=== PATIENT | female | born 1990 | race Two or more races ===

== ENCOUNTER 2016-10-17 17:00 | Emergency (ER) | payer OTHER ==
[~2016-10-17] VITALS: Ht 165.1 cm; Wt 95.5 kg
[2016-10-17] MEDS ORDERED: IBUP-1547 PO (17:14)
[2016-10-17 20:00] LABS: ADD UA MICROSCOPIC NO; APPEARANCE,URINE CLEAR (CLEAR); GLUCOSE, URINE (UA) NEGATIVE (NEGATIVE); KETONES,URINE NEGATIVE (NEGATIVE); LEUKOCYTE ESTERASE ,URINE NEGATIVE (NEGATIVE); OCCULT BLOOD,URINE NEGATIVE (NEGATIVE); PROTEIN,URINE TRACE (NEGATIVE)
[2016-10-17] MEDS ORDERED: KETOROLAC TROMETHAMINE 30 MG/ML VIAL IM ONE (20:00)
[2016-10-17] MEDS ORDERED: ACETAMINOPHEN/CODEINE 300-30 MG TABLET PO ONE (20:30)
[2016-10-17] MEDS ORDERED: METHOCARBAMOL 500 MG TABLET PO ONE (20:30)
[2016-10-17 21:05] VITALS: BP 138/81
== END 2016-10-17 21:06 | disposition home or self-care (01) ==
LOC: EMS 17:03
DX: S39.012A Strain of muscle, fascia and tendon of lower back, initial encounter (principal); X58.XXXA Exposure to other specified factors, initial encounter; Y93.89 Activity, other specified; Y92.89 Other specified places as the place of occurrence of the external cause; Y99.8 Other external cause status
CPT/HCPCS: 81025; 99283